=== PATIENT | female | born 1980 | race Caucasian/White ===

== ENCOUNTER 2017-03-10 05:31 | Inpatient (IN) | payer OTHER ==
[2017-03-10] MEDS ORDERED: LACTATED RINGERS 1,000 ML ONE (05:54)
[2017-03-10] MEDS ORDERED: IV START KIT ONE (05:54)
[2017-03-10] MEDS ORDERED: GENTAMICIN SULFATE 0 MG in SODIUM CHLORIDE 0.9% 100 ML IV PRN (06:23)
[2017-03-10] MEDS ORDERED: CLINDAMYCIN 600 MG PREMIX 600 MG in Premix (D5W) 50 ml 1 EACH IV PRN (06:23)
[2017-03-10] MEDS ORDERED: LIDOCAINE 1% 2 ML VIAL ID PRN (06:23)
[2017-03-10] MEDS ORDERED: LACTATED RINGERS 1,000 ML IV SCH ×2 (06:23→08:00)
[2017-03-10] MEDS ORDERED: PROPOFOL 60 ML IV ONE (06:25)
[2017-03-10] MEDS ORDERED: LIDOCAINE 2% (MULTI DOSE) 10 ML VIAL ONE (06:25)
[2017-03-10] MEDS ORDERED: CLINDAMYCIN 600 MG PREMIX 50 ML IV ONE (06:26)
[2017-03-10] MEDS ORDERED: SPINAL PROCEDURAL TRAY 1 EACH ONE ×2 (06:31→06:32)
[2017-03-10] MEDS ORDERED: BUPIVACAINE 0.75% SPINAL AMPUL 2 ML ONE (06:34)
[2017-03-10] MEDS ORDERED: MIDAZOLAM HCL 1 MG/ML 2ML VIAL ONE (06:35)
[2017-03-10] MEDS ORDERED: FENTANYL 100 MCG/2 ML VIAL ONE ×3 (06:35→09:14)
[2017-03-10] MEDS ORDERED: MORPHINE SULFATE (DURAMORPH) 1 MG/ML 10ML AMP ONE (07:10)
[2017-03-10] MEDS ORDERED: PHENYLEPHRINE 10 MG/1 ML (1%) VIAL ONE (07:28)
[2017-03-10] MEDS ORDERED: SODIUM CHLORIDE 0.9% 100 ML IV ONE (07:28)
[2017-03-10] MEDS ORDERED: GENTAMICIN SULFATE 400 MG in SODIUM CHLORIDE 0.9% 100 ML IV PRN (07:30)
[2017-03-10] MEDS ORDERED: EPHEDRINE SULFATE UD SYR 25 MG 25 MG/5 ML SYRINGE IV ONE (07:41)
[2017-03-10] MEDS ORDERED: HYDRALAZINE HCL 20 MG/1 ML VIAL IV PRN (07:48)
[2017-03-10] MEDS ORDERED: LABETALOL HCL 5 MG/ML 20ML VIAL IV PRN (07:48)
[2017-03-10] MEDS ORDERED: ONDANSETRON 4 MG/2ML 2 ML VIAL IV PRN (07:48)
[2017-03-10] MEDS ORDERED: NALOXONE HCL 0.4 MG/ML VIAL IV PRN ×2 (07:48)
[2017-03-10] MEDS ORDERED: PROMETHAZINE HCL 25 MG/ML VIAL IM PRN (07:48)
[2017-03-10] MEDS ORDERED: ATROPINE SULFATE 0.4 MG/1 ML VIAL IV PRN (07:48)
[2017-03-10] MEDS ORDERED: EPHEDRINE SULFATE 50 MG/ML 1ML VIAL IV PRN (07:48)
[2017-03-10] MEDS ORDERED: HYDROMORPHONE HCL 0.5 MG/0.5 ML SYRINGE IV PRN ×2 (07:48→12:24)
[2017-03-10] MEDS ORDERED: HYDROMORPHONE HCL 1 MG/ML SYRINGE IV PRN ×2 (07:48→12:27)
[2017-03-10] MEDS ORDERED: KETAMINE HCL UD SYRINGE 100 MG/2 ML IV ONE (07:53)
[2017-03-10] MEDS ORDERED: PROPOFOL 20 ML IV ONE ×5 (07:59→08:46)
[2017-03-10] MEDS ORDERED: HYDROMORPHONE HCL 2 MG/ML SYRINGE ONE (08:14)
[2017-03-10] MEDS ORDERED: DEXAMETHASONE SOD PHOS 4 MG/1 ML VIAL ONE (08:29)
[2017-03-10] MEDS ORDERED: ONDANSETRON 4 MG/2ML 2 ML VIAL ONE (08:29)
[2017-03-10] MEDS: FENTANYL 100 MCG/2 ML VIAL IV PRN ×2 (09:17→09:23)
[2017-03-10] MEDS ORDERED: HYDROMORPHONE HCL 1 MG/ML SYRINGE ONE ×2 (09:30→10:06)
[2017-03-10] MEDS: HYDROMORPHONE HCL 1 MG/ML SYRINGE IV PRN ×4 (09:33→10:15)
[2017-03-10] MEDS ORDERED: KETOROLAC TROMETHAMINE 30 MG/ML 1 ML VIAL ONE (09:49)
[2017-03-10] MEDS ORDERED: KETOROLAC TROMETHAMINE 30 MG/ML 1 ML VIAL IV ONE (09:52)
--- NOTE | 2017-03-10 10:14 | OP ---
Laina Ramos DATE: 03/10/2017 SURGEON: Cheng Haney MD POLICE INSPECTOR SURGEON: Elliott Marcano MD PREOPERATIVE DIAGNOSES: Menorrhagia, dysmenorrhea, uterine leiomyoma. POSTOPERATIVE DIAGNOSES: Menorrhagia, dysmenorrhea, uterine leiomyoma. OPERATION: Total abdominal hysterectomy. ANESTHESIA: Spinal. FINDINGS: There were very dense adhesions between the anterior vesicouterine peritoneum and the anterior surface of the uterus. The Fallopian tubes and ovaries appeared normal. TECHNICAL PROCEDURE: After induction of satisfactory spinal anesthesia the patient was placed in the supine position and prepped and draped in the usual sterile fashion. The abdomen was entered in the usual fashion through a pfannenstiel type incision. The previous scar was excised during this process. Upon opening the abdomen multiple adhesions were noted between the omentum and the uterus and vesicouterine peritoneum and the anterior surface of the uterus. These were lysed using sharp and blunt dissection. A Candido retractor was placed in the incision and the bowel was packed away with three dry laparotomy towels. The right round ligament was doubly clamped with Pean clamps, divided, and suture ligated with 0 Vicryl. The right uteroovarian ligament and Fallopian tube were then cross clamped with Pean clamps, divided, and suture ligated with 0 Vicryl. The same procedure was repeated for the left adnexa. The bladder was pushed down in the midline. The left uterine artery was skeletonized, doubly clamped with Pean clamps, divided, and suture ligated twice with 0 Vicryl. The same procedure was repeated on the right. The right cardinal ligament was clamped with a Mary clamp, divided, and suture ligated with 0 Vicryl. The same procedure was repeated on the left. Using a heavy Rucker scissors the cervix was then shelled out of the pubocervical fascia. The vaginal cuff was then entered at the right angle and the cuff incised circumferentially at this level with Luis scissors thus removing the uterus. The angles of the cuff were suture ligated with 0 Vicryl. The cuff was then closed from front to back using interrupted figure of eight sutures of 0 Vicryl. Hemostasis in the pelvis was assured. When hemostasis was assured the laparotomy towels and retractor were removed from the abdomen and the abdomen was closed. The peritoneum was closed with a continuous stitch of 2-0 Vicryl. The fascia was closed with a simple stitch of 0 Vicryl on the midline followed by a continuous loop suture of 0 PDS. The subcutaneous tissue was closed with interrupted simple stitches of 3-0 Plain gut. The skin was then closed using a subcuticular stitch of 4-0 Monocryl. The incision was then treated with skin adhesive and Steri-Strips and the procedure terminated. The patient tolerated the procedure well and left the operating room awake and in good condition. There were no complications. Instrument, needle, and sponge counts were correct. Estimated blood loss was 250 mL. There was no blood replacement. JOB: [id number]
[2017-03-10] MEDS ORDERED: MEPERIDINE 25 MG/ML SYRINGE ONE ×2 (10:26→10:57)
[2017-03-10] MEDS: MEPERIDINE 25 MG/ML SYRINGE IV PRN ×2 (10:30→11:00)
[2017-03-10] MEDS ORDERED: MENTHOL/CETYLPYRD 1 EACH LOZENGE PO PRN (11:34)
[2017-03-10] MEDS ORDERED: MAGNESIUM HYDROXIDE/AL HYDROX 30 ML UDCUP PO PRN (11:34)
[2017-03-10] MEDS ORDERED: BLISTEX LIPSTICK 1 EACH TP PRN (11:34)
[2017-03-10] MEDS ORDERED: DIPHENHYDRAMINE HCL 50 MG/1 ML VIAL IV PRN (11:34)
[2017-03-10] MEDS ORDERED: MAG HYDROX/AL HYDROX/SIMETH 30 ML UDCUP PO PRN (11:34)
[2017-03-10] MEDS ORDERED: DOCUSATE SODIUM 100 MG CAPSULE PO PRN (11:34)
[2017-03-10 11:54] VITALS: BMI 37.2
[2017-03-10] MEDS ORDERED: PUMP TUBING ONE (12:06)
[2017-03-10] MEDS: D5 1/4NS with 20 mEq KCL 1,000 ML IV SCH ×2 (12:15→19:43)
[2017-03-10] MEDS ORDERED: HYDROMORPHONE HCL 2 MG/ML SYRINGE IV PRN (12:28)
[2017-03-10] MEDS: ONDANSETRON 4 MG/2ML 2 ML VIAL IV PRN ×2 (14:05→20:30)
[2017-03-10] MEDS: KETOROLAC TROMETHAMINE 30 MG/ML 1 ML VIAL IV SCH ×2 (16:10→21:28)
[2017-03-10] MEDS: ACETAMINOPHEN 325 MG TABLET PO PRN (17:59)
[2017-03-10] MEDS ORDERED: OXYCODONE HCL 5 MG TABLET ONE ×2 (19:47→20:09)
[2017-03-10] MEDS: OXYCODONE HCL 5 MG TABLET PO PRN (20:00)
[2017-03-11] MEDS: ACETAMINOPHEN 325 MG TABLET PO PRN ×2 (00:02→06:23)
[2017-03-11] MEDS: D5 1/4NS with 20 mEq KCL 1,000 ML IV SCH (03:45)
[2017-03-11] MEDS: KETOROLAC TROMETHAMINE 30 MG/ML 1 ML VIAL IV SCH ×2 (03:45→10:56)
[2017-03-11 07:37] LABS: HEMATOCRIT 34.5 % (37.0-47.0); HEMOGLOBIN 11.8 gm/l (12.0-16.0)
[2017-03-11] MEDS: PSEUDOEPHEDRINE HCL 30 MG TABLET PO SCH (08:09)
[2017-03-11] MEDS: OXYCODONE HCL 5 MG TABLET PO PRN ×4 (08:09→21:42)
--- NOTE | 2017-03-11 10:49 | PDOC43 ---
- Subjective Subjective: Reports Flatus, Reports Pain Tolerable, Reports Tolerating PO Clear , Reports Tolerating PO Regular, Reports Other (offers no complaints), Denies Nausea, Denies Vomiting, Denies Fever - Objective Vital Signs Temperature 97.7 F 03/11/17 07:51 Pulse Rate 78 03/11/17 07:51 Respiratory Rate 16 03/11/17 07:51 Blood Pressure 104/56 03/11/17 07:51 O2 Saturation by Pulse Oximetry 99 03/11/17 07:51 Oxygen Delivery Method Room Air Oxygen Flow Rate 0 Laboratory 03/11/17 06:54 Active Medication Orders Category Date Time Status Acetaminophen [Tylenol] Med 03/10/17 11:34 Active 325 - 650 mg PO Q4H PRN D5 1/4NS with 20 mEq KCL 1,000 ml Med 03/10/17 11:34 Active IV 125 mls/hr Diphenhydramine HCl [Benadryl] Med 03/10/17 11:34 Active 25 mg IV Q6H PRN Docusate Sodium [Colace] Med 03/10/17 11:34 Active 100 mg PO BID PRN Ketorolac Tromethamine [Toradol] Med 03/10/17 16:00 Active 30 mg IV Q6H Lip [place] [Blistex] Med 03/10/17 11:34 Active 1 each TP PRN PRN Magnesium Hydroxide/Al Hydrox [Maalox] Med 03/10/17 11:34 Active 30 ml PO Q4H PRN Magnesium/Al Hydrox/Simeth [Maalox Plus] Med 03/10/17 11:34 Active 30 ml PO Q4H PRN Menthol/Cetylpyridinium [Cepacol] Med 03/10/17 11:34 Active 1 each PO PRN PRN Ondansetron 4 mg/2ml Vial [Zofran] Med 03/10/17 11:34 Active 4 mg IV Q4H PRN Oxycodone HCl [Roxicodone] Med 03/10/17 20:07 Active 5 - 10 mg PO Q3H PRN Pseudoephedrine HCl [Sudafed] Med 03/11/17 09:00 Active 30 mg PO DAILY Sodium Chloride 0.9% Flush [Normal Saline 10ml Flush] Med 03/10/17 11:34 Active 10 - 50 ml IV PRN PRN Sodium Chloride 0.9% Flush [Normal Saline 10ml Flush] Med 03/10/17 17:00 Active 10 ml IV Q8HR Intake and Output 03/09/17 03/10/17 03/11/17 23:59 23:59 23:59 Intake Total 3958 200 Output Total 950 1550 Balance 3008 -1350 General: Afebrile, No Acute Distress Lungs: Clear to Auscultation Bilaterally, Normal Air Movement Abdomen: Soft, Non-Distended, Normal Bowel Sounds, No Tenderness 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
[2017-03-11] MEDS: IBUPROFEN 800 MG TABLET PO SCH ×3 (11:16→22:47)
[2017-03-12] MEDS: OXYCODONE HCL 5 MG TABLET PO PRN ×2 (01:15→03:56)
[2017-03-12] MEDS: IBUPROFEN 800 MG TABLET PO SCH ×2 (03:59→10:22)
[2017-03-12 08:15] VITALS: BP 117/65
[2017-03-12] MEDS: PSEUDOEPHEDRINE HCL 30 MG TABLET PO SCH (08:28)
[2017-03-12] MEDS: ACETAMINOPHEN 325 MG TABLET PO PRN (10:22)
--- NOTE | 2017-03-12 10:54 | PDOC5 ---
Hospital Course: ADMIT DATE: 03/10/17 DISCHARGE DATE: 03/12/2017 ADMISSION DIAGNOSES: Menorrhagia PROCEDURES: Total abdominal hysterectomy HISTORY OF PRESENT ILLNESS: 36 year old presenting with a history of heavy flow with menses, bleeding between menses, and dysmenorrhea which have not been controlled with a Mirena IUD or oral contraceptives. HOSPITAL COURSE: The patient on the day of admission was taken to surgery where she underwent a total abdominal hysterectomy. Her postoperative course was uncomplicated. By day of discharge the patient is ambulating, eating, voiding, and passing flatus without difficulty. Pain is controlled. 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 Report if you have heavy bleeding, worsening pain, or a temperature over 100. Prescriptions: Oxycodone HCl [ROXICODONE 5 MG IR TABLET (SHF)] 5 mg PO Q4H PRN #30 tab PRN Reason: Pain Follow-Up: Cheng Haney MD [Staff Physician] - In 2 weeks
--- NOTE | 2017-03-14 11:43 | SURGPATH ---
[facility] [address] [place] [id number] Patient Name: WILIAN MANN MR#: [id number] : 1980 Gender: F Specimen #: [id number] Collected: 03/10/2017 Received: 03/13/2017 Reported: 03/14/2017 Submitting Phys: AVE LOCKE Copy To Phys: [facility] Clinical History / Pre-Operative Diagnosis: LEIOMYOMA; MENORRHAGIA Specimen Source / Surgical Procedure Performed: UTERUS AND CERVIX Interpretation: UTERUS, HYSTERECTOMY: - UTERINE SEROSA: BENIGN FIBROVASCULAR ADHESIONS - ENDOMETRIUM: SECRETORY PHASE - MYOMETRIUM, CERVIX: NO PATHOLOGIC DIAGNOSIS Electronically Signed Out Jonatan Parsons M.D. Gross Description: The specimen is received in a formalin filled container labeled with the patient's name and "uterus and cervix". A 152 g, intact uterus and cervix is 11 x 6 x 4.5 cm. The castaneda serosa has focal surface adhesions. The ectocervix is smooth and pale pink. The os and endocervical canal are patent. There is a 0.5 cm lower anterior uterine segment blind pouch. The endometrium is flat, red-castaneda and averages 0.3 cm. The dense castaneda myometrium is thickened to 2 cm and is without nodule or induration. Summary of sections: A-serosa B-anterior and posterior cervix C-lower anterior uterine segment blind pouch D and E-anterior endomyometrium F and G-posterior endomyometrium Adrian Berg Microscopic Description: Sections of the uterine serosa contain unremarkable fibrovascular adhesions. Dilated mucus filled cysts are present in the cervix. The endometrium has secretory features and lacks architectural and cytologic atypia. The myometrium is unremarkable. 1: [id number] N85.8
== END 2017-03-12 11:15 | disposition home or self-care (01) | DRG 743 ==
LOC: OR 05:31 → MS 11:47
PROVIDERS: ADMIT Obstetrics & Gynecology; ATTEND Obstetrics & Gynecology
PROC: 0UT90ZZ Resection of Uterus, Open Approach (ICD-10-PCS; principal; 2017-03-10)
PROC: 0UTC0ZZ Resection of Cervix, Open Approach (ICD-10-PCS; 2017-03-10)
DX: D25.9 Leiomyoma of uterus, unspecified (principal); N92.0 Excessive and frequent menstruation with regular cycle; N94.6 Dysmenorrhea, unspecified